=== PATIENT | female | born 1975 | race Caucasian/White ===

== ENCOUNTER 2023-12-11 23:12 | Emergency (ER) | payer OTHER, MEDICAID ==
[~2023-12-11] VITALS: Ht 162.6 cm; Wt 72.6 kg
[2023-12-11 23:15] VITALS: BP_SYST 134; PULSE 71; RESP 17; TEMP 98.1; O2SAT 97
[2023-12-12] MEDS ORDERED: ACETAMINOPHEN 500 MG TABLET PO ONE (00:45)
[2023-12-12] MEDS ORDERED: LIDO1ADH77 TD (00:58)
[2023-12-12] MEDS ORDERED: METH-634 PO (00:58)
[2023-12-12] MEDS ORDERED: LIDOCAINE PATCH 5% 1 EA TP ONE (01:17)
== END 2023-12-12 01:53 | disposition home or self-care (01) ==
LOC: SED 23:12
DX: S16.1XXA Strain of muscle, fascia and tendon at neck level, initial encounter (principal); Z79.899 Other long term (current) drug therapy; X58.XXXA Exposure to other specified factors, initial encounter; Y93.89 Activity, other specified; Y92.89 Other specified places as the place of occurrence of the external cause; Y99.8 Other external cause status
CPT/HCPCS: 99283

== ENCOUNTER 2024-02-09 20:39 | Emergency (ER) | payer MEDICAID, OTHER ==
[~2024-02-09] VITALS: Ht 165.1 cm; Wt 70.3 kg
[~2024-02-09 20:39] MED LIST: LIDO1ADH77 TD; METH-634 PO
[2024-02-09 21:07] VITALS: BP_SYST 128; PULSE 68; RESP 18; TEMP 97; O2SAT 100
[2024-02-09 22:06] LABS: BASOPHILS % (AUTO) 0.3 % (0.0-2.0); EOSINOPHILS # (AUTO) 0.1 K/uL (0.0-0.4); EOSINOPHILS % (AUTO) 1.2 % (0.0-4.0); HEMATOCRIT 35.3 % (36-48); LYMPHOCYTES # (AUTO) 2.1 K/uL (1.0-5.5); LYMPHOCYTES % (AUTO) 26.4 % (20.5-51.5); MEAN CORPUSCULAR HEMOGLOBIN 29 pg (27-31); MEAN CORPUSCULAR HGB CONC 34 % (32-36); MEAN CORPUSCULAR VOLUME 86 fL (79.0-98.0); MONOCYTES # (AUTO) 0.5 K/uL (0.0-1.0); MONOCYTES % (AUTO) 6.2 % (1.7-9.3); NEUTROPHILS # (AUTO) 5.1 K/uL (1.8-7.7); NEUTROPHILS % (AUTO) 65.9 % (40.0-70.0); PLATELET COUNT (AUTO) 291 K/uL (130-430); RED BLOOD CELL COUNT(AUTO) 4.08 MIL/uL (4.2-6.2); RED CELL DISTRIBUTION WIDTH 12.8 % (9.0-15.0); WHITE BLOOD COUNT (AUTO) 7.8 K/uL (4.8-10.8)
[2024-02-09 22:19] LABS: ANION GAP 9 (5-15); CALCIUM 9.3 mg/dL (8.4-11.0); CARBON DIOXIDE 25 mmol/L (23-29); CHLORIDE 102 mmol/L (98-107); CREATININE 0.86 mg/dL (0.55-1.30); GFR AFRICAN AMERICAN 91 mL/min (>90); GLUCOSE 124 mg/dL (74-106); POTASSIUM 4.2 mmol/L (3.5-5.1); SODIUM SERUM 136 mmol/L (136-145); UREA NITROGEN, BLOOD 27 mg/dL (8-21)
[2024-02-09 22:21] LABS: GFR NON AFRICAN-AMERICAN 75 mL/min (>90)
[2024-02-09 22:36] LABS: SERUM HCG (QUALITATIVE) NEGATIVE (NEGATIVE)
[2024-02-09] MEDS: MECLIZINE HCL 25 MG TABLET (ANITVERT) PO ONE (22:46)
[2024-02-09] MEDS: NACL 0.9% 1,000 ML IV ONE (22:46)
[2024-02-09] MEDS ORDERED: MECL-225 PO (23:55)
[2024-02-10 00:03] VITALS: BP_SYST 128; PULSE 68; RESP 18; TEMP 97; O2SAT 100
== END 2024-02-10 00:03 | disposition home or self-care (01) ==
LOC: SED 20:39
DX: H81.10 Benign paroxysmal vertigo, unspecified ear (principal); Z79.899 Other long term (current) drug therapy
CPT/HCPCS: 99285; 96360; 71045; 80048; 84703; 85025; 84484; 36415; 93005; J7030; J8597